=== PATIENT | female | born 1960 | race Caucasian/White ===

== ENCOUNTER 2017-01-01 16:33 | Inpatient (IN) | payer OTHER ==
[~2017-01-01] VITALS: Ht 152.4 cm; Wt 68.8 kg
[2017-01-01] MEDS ORDERED: ONDANSETRON 4 MG INJ IV STA ×2 (17:17→19:26)
[2017-01-01] MEDS ORDERED: SOD CHLORIDE 0.9% 1,000 ML IV STA ×3 (17:17→19:26)
[2017-01-01] MEDS ORDERED: FAMOTIDINE 20 MG INJ IV STA (17:17)
--- NOTE | 2017-01-01 17:24 | ERD ---
ER Documentation Chief Complaint Date/Time DATE: 01/01/17 TIME: 17:19 Chief Complaint NAUSEA VOMTING AND ABD PAIN FOR 1 DAY. BS [employer] WAS 366. NO HEMATEMES HPI This is a 56-year-old female with known history of diabetes mellitus type 2, hypertension that presents to the emergency department complaining of multiple episodes of nonbloody nonbilious emesis for the past 12 hours that occurred after the patient developed a sudden onset of severe dizziness. The patient indicates that at roughly 7 AM this morning after awakening she felt as though the room was spinning around her with no tinnitus. She immediately had a feeling of nausea followed by nonbloody nonbilious emesis. The patient indicates that when she attempts to ambulate she feels unsteady in her gait due to the dizziness. She denies any chest pain or pressure that radiates to the neck arm back or jaw. She states that she is experiencing a mild headache that feels like a bandlike headache. She indicates that 6 months ago she had similar episodes and was diagnosed with peripheral vertigo. She denies any recent travel or prolonged immobilization has no shortness of breath at rest or exertion. She denies any weakness or numbness of her upper or lower extremities. She states that the dizziness is exacerbated when she opens her eyes and stands and is improved when she lies supine with her eyes closed. She went to the clinic just prior to arrival and immediately was sent to the emergency department to be further evaluated. Her blood glucose at that time was 326. She states she is compliant with her medications and denies any polyuria or polydipsia. Contrary to the triage note the patient denies any abdominal pain or diarrhea. ROS All systems reviewed and are negative except as per history of present illness. Medications Home Meds Reported Medications Metformin Hcl* (Metformin Hcl*) 850 Mg Tablet, 850 MG PO WITH BREAKFAST, #30 TAB 01/01/17 Atenolol* (Atenolol*) 50 Mg Tablet, 50 MG PO DAILY, #30 TAB 01/01/17 Allergies Allergies: Coded Allergies: No Known Allergy (Unverified , 01/01/17) Physical Exam Vitals Vital Signs Date Time Temp Pulse Resp B/P Pulse Ox O2 Delivery O2 Flow Rate FiO2 01/01/17 18:35 71 17 148/74 100 Room Air 01/01/17 16:38 98.0 76 20 201/100 96 Physical Exam Constitutional:Well-developed. Well-nourished. Sitting in a chair with her eyes closed. HEENT:Normocephalic. Atraumatic.Pupils were equal round reactive to light. Dry mucous membranes.No tonsillar exudates. Fundoscopy exam shows sharp optic disc bilaterally and venous pulsations are Neck: No nuchal rigidity. No lymphadenopathy. No posterior cervical spine tenderness or step-offs. Respiratory: Not using accessory muscles of respiration.Lungs were clear to auscultation bilaterally. No rhonchi. No rales. No wheezing. Cardiovascular: Regular rate regular rhythm.No murmurs. No rubs were appreciated.S1, S2 normal. Distal pulses are palpable 2+ bilaterally. GI: Abdomen was soft. Nontender. Non Distended. No pulsatile abdominal masses or bruits. No rebound. No guarding. Bowel sounds were present and normal. Muscle skeletal: Full range of motion of both the upper and lower extremities bilaterally.Normal muscle tone.No assymetrical calf tenderness or swelling. Skin: No petechia, no purpura. No lesions on the palms or the soles of the feet. No maculopapular rash. NEURO: Patient was alert, awake, orientated x3.No facial droop. Gait not observed as patient was experiencing severe dizziness. Fatigable nystagmus most prominent on right-sided gaze. Speech had regular rate and rhythm. No focal neurological deficits. Result Diagram: 01/01/17 1735 01/01/17 1735 Results 24 hrs Laboratory Tests Test 01/01/17 17:35 White Blood Count 11.810^3/ul Red Blood Count 5.5110^6/ul Hemoglobin 15.1g/dl Hematocrit 42.6% Mean Corpuscular Volume 77.3fl Mean Corpuscular Hemoglobin 27.4pg Mean Corpuscular Hemoglobin Concent 35.4g/dl Red Cell Distribution Width 12.7% Platelet Count 19059^3/UL Mean Platelet Volume 10.5fl Neutrophils % 77.8% Lymphocytes % 18.4% Monocytes % 2.2% Eosinophils % 0.1% Basophils % 0.4% Nucleated Red Blood Cells % 0.2/100WBC Neutrophils # 9.210^3/ul Lymphocytes # 2.210^3/ul Monocytes # 0.310^3/ul Eosinophils # 0.010^3/ul Basophils # 0.110^3/ul Nucleated Red Blood Cells # 0.010^3/ul Prothrombin Time 11.8Sec Prothrombin Time Ratio 0.9 INR International Normalized Ratio 0.87 Activated Partial Thromboplast Time 24.6Sec Sodium Level 139mmol/L Potassium Level 3.9mmol/L Chloride Level 97mmol/L Carbon Dioxide Level 27mmol/L Anion Gap 19 Blood Urea Nitrogen 14mg/dl Creatinine 0.40mg/dl Glucose Level 384mg/dl Calcium Level 9.8mg/dl Total Bilirubin 0.4mg/dl Direct Bilirubin 0.00mg/dl Indirect Bilirubin 0.4mg/dl Aspartate Amino Transf (AST/SGOT) 25IU/L Alanine Aminotransferase (ALT/SGPT) 39IU/L Alkaline Phosphatase 99IU/L Troponin I < 0.012ng/ml Total Protein 8.5g/dl Albumin 4.7g/dl Globulin 3.80g/dl Albumin/Globulin Ratio 1.23 Amylase Level 76U/L Lipase 114U/L Current Medications Medications (Trade) Dose Ordered Sig/Madhav Route PRN Reason Start Time Stop Time Status Last Admin Dose Admin Sodium Chloride (NS) 1,000 ml @ 1,000 mls/hr Q1H STAT IV 01/01/17 17:17 01/01/17 18:16 DC 01/01/17 17:30 Ondansetron HCl (Zofran Inj) 4 mg ONCE STAT IV 01/01/17 17:17 01/01/17 17:19 DC 01/01/17 17:31 Famotidine (Pepcid Iv) 20 mg ONCE STAT IV 01/01/17 17:17 01/01/17 17:19 DC 01/01/17 17:31 Meclizine HCl (Antivert) 25 mg ONCE ONCE PO 01/01/17 17:30 01/01/17 17:31 DC 01/01/17 17:31 Metoclopramide HCl 10 mg 10 mg ONCE ONCE IV 01/01/17 18:00 01/01/17 18:01 DC 01/01/17 18:32 Sodium Chloride (NS) 1,000 ml @ 1,000 mls/hr Q1H STAT IV 01/01/17 19:06 01/01/17 20:05 DC 01/01/17 19:21 Diazepam (Valium) 2.5 mg ONCE ONCE IV 01/01/17 19:30 01/01/17 19:31 DC 01/01/17 19:40 Ondansetron HCl 4 mg 4 mg ONCE STAT IV 01/01/17 19:26 01/01/17 19:27 DC 01/01/17 19:39 Sodium Chloride (NS) 1,000 ml @ 1,000 mls/hr Q1H STAT IV 01/01/17 19:26 01/01/17 20:25 DC 01/01/17 19:40 Procedures/MDM This patient was seen and evaluated by myself. The patient presented to the emergency department complaining of dizziness. My differential diagnosis included but was not limited to hypovolemia, myocardial infarction, pulmonary embolism, hypoglycemia, hypoxia, anemia, vasovagal episode, hypothyroidism, anxiety, peripheral or central vertigo. The patient was placed on a erisa attorney, continuous pulse oximetry and IV access established by nursing staff. The patient was given a liter bolus of normal saline, IV Zofran and Antivert for suspected vertigo. I did feel is necessary to obtain a CT scan of the patient's head which was reviewed by myself and the radiologist indicated no acute intracerebral hemorrhage mass-effect or midline shift. The patient's symptoms occurred 10 hours prior to arrival and did not have any strokelike symptoms to suggest an ischemic cerebrovascular accident. The patient had hyperglycemia without ketosis. This was treated with IV fluids. The patient was hypertensive upon arrival into the emergency department however the patient was actively vomiting. Once the patient's vomiting have subsided her blood pressure had improved with no signs of endorgan damage to suggest hypertensive emergency or urgency. 12 Lead EKG tracing ordered and reviewed by myself showed: Normal sinus rhythm of 62 bpm and no arrhythmia. MO interval normal. QRS duration normal. No ST segment elevation No ST segment depression. No changes consistent with acute ischemia. Observation Note: Time: 4 hours Family Hx: No Hypertension Evaluation: Multiple exams showed no improvement of the patient's symptoms. She continued to have the sensation of severe vertigo. At this time she had further episodes of nonbloody nonbilious emesis and continued to receive IV Reglan followed by IV Zofran and was also given intravenous Valium. Given the severity of the patient's symptoms I did feel she required admission for further diagnostic imaging as the patient will undergo a CTA of her head and neck. She will be admitted to the [facility] physician , in serious condition to the telemetry service Departure Diagnosis: Primary Impression: Nausea and vomiting Vomiting type: unspecified Vomiting Intractability: intractable Qualified Code: R11.2 - Intractable vomiting with nausea, unspecified vomiting type Additional Impression: Peripheral vertigo Laterality: unspecified laterality Qualified Code: H81.399 - Peripheral vertigo, unspecified laterality Condition: Serious BETINA STANLEY January 01, 2017 17:23
[2017-01-01] MEDS ORDERED: MECLIZINE 12.5 MG TAB PO ONE (17:30)
[2017-01-01 17:44] LABS: ADD SCAN DIFF NO
[2017-01-01 17:46] LABS: BASOPHIL # 0.1 10^3/ul (0.0-0.1); BASOPHILS % 0.4 % (0.0-2.0); EOSINOPHILS % 0.1 % (0.0-7.0); HEMATOCRIT 42.6 % (37.0-47.0); HEMOGLOBIN 15.1 g/dl (12.0-16.0); LYMPHOCYTES # 2.2 10^3/ul (0.8-2.9); LYMPHOCYTES % 18.4 % (15.0-51.0); MEAN CORPUSCULAR HEMOGLOBIN 27.4 pg (29.0-33.0); MEAN CORPUSCULAR HGB CONC 35.4 g/dl (32.0-37.0); MEAN CORPUSCULAR VOLUME 77.3 fl (82.0-101.0); MEAN PLATELET VOLUME 10.5 fl (7.4-10.4); MONOCYTE # 0.3 10^3/ul (0.3-0.9); MONOCYTES % 2.2 % (0.0-11.0); NEUTROPHIL # 9.2 10^3/ul (1.6-7.5); NEUTROPHILS % 77.8 % (39.0-77.0); NUCLEATED RED BLOOD CELLS% 0.2 /100WBC (0.0-0.0); PLATELET COUNT 281 10^3/UL (140-415); RED BLOOD COUNT 5.51 10^6/ul (4.20-5.40); RED CELL DISTRIBUTION WIDTH 12.7 % (11.5-14.5); WHITE BLOOD COUNT 11.8 10^3/ul (4.8-10.8)
[2017-01-01] MEDS ORDERED: METOCLOPRAMIDE 10 MG INJ IV ONE (18:00)
[2017-01-01] MEDS ORDERED: ATEN50TA PO (18:11)
[2017-01-01] MEDS ORDERED: METF850T PO (18:12)
[2017-01-01 18:22] LABS: INR 0.87; PROTIME 11.8 Sec (12.2-14.2); PT RATIO 0.9
[2017-01-01 18:23] LABS: PARTIAL THROMBOPLASTIN TIME 24.6 Sec (25.0-35.0)
[2017-01-01 18:24] LABS: ALBUMIN 4.7 g/dl (3.3-4.9); CHLORIDE 97 mmol/L (97-110)
[2017-01-01 18:25] LABS: POTASSIUM 3.9 mmol/L (3.5-5.1); SODIUM 139 mmol/L (135-144)
[2017-01-01 18:27] LABS: ALBUMIN/GLOBULIN RATIO 1.23; AMYLASE 76 U/L (11-123); ANION GAP 19 (8-16); BILIRUBIN,INDIRECT 0.4 mg/dl (0-1.1); BILIRUBIN,TOTAL 0.4 mg/dl (0.2-1.3); CARBON DIOXIDE 27 mmol/L (21-31); TOTAL PROTEIN 8.5 g/dl (6.1-8.1)
[2017-01-01 18:28] LABS: ALANINE AMINOTRANSFERASE 39 IU/L (13-69); ALKALINE PHOSPHATASE 99 IU/L (42-121); ASPARTATE AMINO TRANSFERASE 25 IU/L (15-46); BLOOD UREA NITROGEN 14 mg/dl (7-20); CALCIUM 9.8 mg/dl (8.4-10.2); GLUCOSE 384 mg/dl (70-220)
[2017-01-01 18:37] LABS: TROPONIN-I < 0.012 ng/ml (0.00-0.12)
--- NOTE | 2017-01-01 18:53 | RADRPT ---
PROCEDURE: CT Brain without. CLINICAL INDICATION: Severe headache and dizziness. TECHNIQUE: A CT of the brain was performed on multidetector high-resolution CT scanner utilizing a xial sections from the skull base through the vertex without contrast. The scan was reviewed in sof t tissue brain and high frequency resolution bone algorithm windows. Images were reviewed on a high -resolution PACS workstation. One or more the following does reduction techniques were utilized: Aut omated exposure control, adjustment of the mA/ or kV according to patient's size, or use of iterativ e reconstruction technique. The exam CTDI = 43.1 mGy and the DLP = 823.56 mGy-cm. COMPARISON: None available per FINDINGS: The ventricles and sulci are minimal prominent indicative of volume loss. There is no intracranial h emorrhage, mass effect or midline shift. No abnormal intra-axial or extra-axial fluid collections a re seen. The robles/white matter differentiation is preserved. There are mild scattered foci of hypoattenuation in the white matter, which are nonspecific in etiol ogy but likely reflect chronic small vessel ischemic changes. There are mild intracranial vascular calcifications consistent with atherosclerosis. The visualized paranasal sinuses are essentially amy ar. IMPRESSION: 1. No acute intracranial hemorrhage, transcortical infarction or mass effect. 2. Mild intracranial atherosclerosis and chronic small vessel ischemic changes. 3. Minimal generalized cerebral volume loss. RPTAT: EE .Yadira Whitehead MD, MD Date Time Electronically viewed and signed by .Yadira Whitehead MD, MD on 01/01/2017 18:52 .N/
[2017-01-01] MEDS ORDERED: DIAZEPAM 5 MG/ML SYG IV ONE (19:30)
[2017-01-01] MEDS ORDERED: NACL 0.9% 3 ML SYG IV SCH (21:30)
[2017-01-01] MEDS ORDERED: ONDANSETRON 4 MG INJ IV PRN ×2 (21:30)
[2017-01-01] MEDS ORDERED: METOCLOPRAMIDE 10 MG INJ IV PRN (21:30)
[2017-01-01] MEDS ORDERED: SOD CHLORIDE 0.9% 500 ML IV ONE (21:30)
[2017-01-01] MEDS ORDERED: IOHEXOL 100 ML ONE (21:37)
[2017-01-01] MEDS ORDERED: SOD CHLORIDE 0.9% 100 ML ONE (21:37)
[2017-01-01] MEDS ORDERED: GLUCOSE GEL 15 GRAM TUBE PO PRN ×2 (22:00)
[2017-01-01] MEDS ORDERED: GLUCAGON 1 MG INJ IM PRN (22:00)
[2017-01-01] MEDS ORDERED: DEXTROSE 50% 50 ML SYRINGE IV PRN ×2 (22:00)
[2017-01-01] MEDS ORDERED: GLUCOSE GEL 15 GRAM TUBE BUCCAL PRN (22:00)
--- NOTE | 2017-01-01 22:51 | RADRPT ---
PROCEDURE: CTA Head and neck. CLINICAL INDICATION: Headache. Dizziness. TECHNIQUE: CTA of the head and neck was obtained . Sagittal and coronal reformations and MIPs were provided. Images were obtained prior following the intravenous contrast administration of 95 cc of O mnipaque 350 contrast. The administered radiation dose was CTDI vol = 16.5, 17.92 mGy, DLP = 8.25, 626.33 mGy-cm. Coronal and sagittal as well as maximal intensity projection reformations were obtai meme. One or more of the following dose reduction techniques were used: Automated exposure control, A djustment of the mA and/or kV according to patient size, or Use of iterative reconstruction techniqu e. COMPARISON: There are no similar studies submitted for comparison.Noncontrast CT of the head from e same day. FINDINGS: CTA neck: Aorta: Normal in caliber. There is a bovine aortic arch which is a normal variant. Right common carotid artery: Patent without evidence of stenosis. Right internal carotid artery: There is a cleft within the proximal right internal carotid artery. Patent without evidence of stenosis. Right external carotid artery: Patent without evidence of stenosis. Left common carotid artery: Patent without evidence of stenosis. Left internal carotid artery: There is an apparent cleft within the left internal carotid artery. P atent without evidence of stenosis. Left external carotid artery: Patent without evidence of stenosis. V1/V2 vertebral arteries: The left vertebral artery originates off of the aorta which is a normal va riant. Patent bilaterally without evidence of stenosis. Vertebral artery dominance: Right. CTA head: Carotid arteries: There are mild vascular calcifications within the bilateral cavernous carotid julien merlyn as well as mild vascular calcifications within the left supraclinoid carotid artery. There is mild right supraclinoid carotid artery stenosis. There is mild right carotid artery stenosis. Anterior cerebral arteries: Patent bilaterally without evidence of stenosis. Middle cerebral arteries: Patent bilaterally without evidence of stenosis. Posterior cerebral arteries: Patent bilaterally without evidence of stenosis. Anterior communicating artery: Present. Posterior communicating arteries: Present on the right. The right P1 segment is hypoplastic. Basilar artery: Patent without evidence of stenosis. V3/V4 Vertebral arteries: Patent bilaterally without evidence of stenosis. Aneurysm: No aneurysm is identified. Venous sinuses: Patent. CT head with contrast: No significant change from recent noncontrast CT of the head. CT neck: There is no cervical adenopathy.There is straightening of the normal cervical lordosis. IMPRESSION: CTA Head 1. No arterial thrombus or vessel occlusion. 2. Mild right supraclinoid and mild right carotid artery stenosis. 3. No intracranial aneurysm. CTA Neck 1. Clefts within the bilateral internal carotid arteries which is likely a normal variant without bi lateral cervical internal carotid artery stenosis by NASCET criteria. 2. The left vertebral artery originates off of the aorta which is a normal variant. 3. Bovine aortic arch which is a normal variant. 4. No carotid or vertebral artery dissection Further findings as detailed above. RPTAT: HVF .Oumar Wright MD, Date Time Electronically viewed and signed by .Oumar Wright MD, on 01/01/2017 22:51 .F/
[2017-01-01 23:14] VITALS: PULSE 74
[2017-01-01 23:34] VITALS: Ht 152.4 cm; Wt 68.8 kg
[2017-01-01 23:52] VITALS: BP 143/65; RESP 20
[2017-01-01] MEDS: SOD CHLORIDE 0.9% 1,000 ML IV SCH (23:59)
[2017-01-02] VITALS (12 sets, daily range): BP systolic 116–144; BP diastolic 54–68; PULSE 60–84; RESP 18–20
[2017-01-02] MEDS: MECLIZINE 25 MG TAB PO SCH ×4 (01:06→20:26)
[2017-01-02] MEDS ORDERED: ACCUCHECK AT 2AM (Patients on SS coverage) XX SCH (02:00)
[2017-01-02 06:50] LABS: ADD SCAN DIFF NO
[2017-01-02 06:54] LABS: BASOPHILS % 0.3 % (0.0-2.0); EOSINOPHILS % 0.4 % (0.0-7.0); HEMATOCRIT 37.1 % (37.0-47.0); HEMOGLOBIN 13.4 g/dl (12.0-16.0); LYMPHOCYTES # 2.7 10^3/ul (0.8-2.9); LYMPHOCYTES % 26.7 % (15.0-51.0); MEAN CORPUSCULAR HEMOGLOBIN 27.7 pg (29.0-33.0); MEAN CORPUSCULAR HGB CONC 36.1 g/dl (32.0-37.0); MEAN CORPUSCULAR VOLUME 76.8 fl (82.0-101.0); MEAN PLATELET VOLUME 10.4 fl (7.4-10.4); MONOCYTE # 0.6 10^3/ul (0.3-0.9); MONOCYTES % 5.9 % (0.0-11.0); NEUTROPHIL # 6.8 10^3/ul (1.6-7.5); NUCLEATED RED BLOOD CELLS% 0.3 /100WBC (0.0-0.0); PLATELET COUNT 286 10^3/UL (140-415); RED BLOOD COUNT 4.83 10^6/ul (4.20-5.40); RED CELL DISTRIBUTION WIDTH 12.5 % (11.5-14.5); WHITE BLOOD COUNT 10.2 10^3/ul (4.8-10.8)
[2017-01-02 07:17] LABS: ALBUMIN 3.8 g/dl (3.3-4.9); ALBUMIN/GLOBULIN RATIO 1.18; BILIRUBIN,INDIRECT 0.6 mg/dl (0-1.1); BILIRUBIN,TOTAL 0.6 mg/dl (0.2-1.3); CALCIUM 8.5 mg/dl (8.4-10.2); CREATININE 0.38 mg/dl (0.44-1.00); MAGNESIUM 1.4 mg/dl (1.7-2.5); PHOSPHORUS 3.5 mg/dl (2.5-4.9); POTASSIUM 3.8 mmol/L (3.5-5.1)
[2017-01-02 07:48] LABS: THYROID STIMULATING HORMONE 0.883 MIU/L (0.465-4.680)
[2017-01-02] MEDS ORDERED: INSULIN ASPART [NOVOLOG] 3 ML PEN SC SCH ×2 (07:55→11:50)
[2017-01-02] MEDS: ATENOLOL 50 MG TAB PO SCH (08:35)
[2017-01-02] MEDS: SOD CHLORIDE 0.9% 1,000 ML IV SCH (08:35)
[2017-01-02] MEDS: FAMOTIDINE 20 MG INJ IV SCH ×2 (08:39→20:26)
[2017-01-02] MEDS ORDERED: SOD CHLORIDE 0.9% 500 ML IV ONE (10:00)
[2017-01-02] MEDS: LINAGLIPTIN 5 MG TABLET PO SCH (10:47)
--- NOTE | 2017-01-02 10:48 | HP ---
DATE OF ADMISSION: 01/01/2017 PRIMARY CARE PHYSICIAN: Payton Nowak MD CHIEF COMPLAINT ON ADMISSION: Nausea, vomiting, and dizziness. HISTORY OF PRESENT ILLNESS: This is a 56-year-old female with diabetes mellitus type 2, hypertensio n, noncompliant with diet or diabetic medication, who presented at an urgent care with complaints of acute onset yesterday of headache, dizziness, unsteadiness. She was noted to have multiple episode s of nausea and vomiting while awaiting at urgent care and also pale. She was noted to be hypertens josh upon arrival at the urgent care 160/90 and a blood glucose of 326. Given her ongoing symptoms a nd clinical state, she was referred to [facility] ER. In the emergency department upon presentation, the patient was noted to be significantly hypertensive with blood pressure of 20 1/100, this was however during episodes of vomiting. Again, her blood sugars were elevated up to 38 4. The rest of her laboratory data are fairly normal. Despite a dose of meclizine, Reglan, Zofran and finally low-dose Valium, the patient was still having severe symptoms. She is unable to stand, unable to walk, starts throwing up the minute she stands up and having ongoing mild nystagmus. The patient reports that she was worked up as an outpatient 6 months ago for moderate symptoms of benign positional vertigo. She reports that her symptoms resolved over a period of 4 days. She reports b brooklynn diagnosed with diabetes 3 years ago, has been on metformin 850 mg p.o. q.a.m. over the past 3 y ears. She does not check her blood sugars, has not had any reevaluation of her diabetes over the st 3 years, this is according to the patient. This morning, she is still vertiginous, having nausea and vomiting. She is unable to tolerate most of her p.o. intake and she is complaining of headache after multiple episodes of nausea and vomiting . She is on IV fluids, will be increased to 125 mL/hour after a bolus of 500 mL. I have started he r on Reglan with the meals. Her A1c came back at 11.5, consistent with diabetes mellitus, uncontrol led, likely secondary to noncompliance in this case. The patient seems to be unaware of the need fo r blood sugar checks. She does not have a machine. Diabetes education will be ordered. She starte d on Tradjenta this morning along with a sliding scale insulin and further insulin therapy added as needed and as she tolerates p.o. She had a CT angiogram of her head and neck overnight, which are n egative at this point. We will check a 2-D echocardiogram to complete her workup. Her thyroid func tion testing are negative. For now, she is on telemetry on monitoring, possibly to be downgraded in the next 24 hours if there are no signs of cardiac issues. [facility] ALLERGIES: NO KNOWN ALLERGIES. PAST MEDICAL HISTORY: 1. Benign positional vertigo. 2. Diabetes mellitus, uncontrolled due to noncompliance with diet and medication. 3. Hypertension. PAST SURGICAL HISTORY: 1. Status post x3, remotely. 2. Status post right breast biopsy 3 years ago, which was negative according to patient. SOCIAL HISTORY: She lives with her . She does not drink or smoke tobacco. No history of dr jensen use. REVIEW OF SYSTEMS: As per HPI. The patient denies any chest pain. She denies any abdominal pain p er se, just the nausea and vomiting. She denies any neurological deficits, but is having ongoing ve rtigo and headaches currently. She denies any lower extremity edema. No recent infection. No feve rs, no chills, no cough. OUTPATIENT MEDICATIONS: 1. Atenolol 50 mg p.o. daily. 2. Metformin 850 mg p.o. q .breakfast. PHYSICAL EXAMINATION: VITAL SIGNS: Temperature is 98.0, heart rate of 75, respiratory rate of 18, blood pressure 125/63. The patient is satting 96% on room air. GENERAL: She is alert and oriented x4. She has good Turkish actually, but primarily [place] speaki ng. She is not in acute distress currently, except she is uncomfortable due to the ongoing vertigo and mild headache. HEENT: Pupils are equally round and reactive to light. Extraocular muscles are intact. No nystagm us is detected. NECK: No JVD, no thyromegaly noted. HEART: Regular rate and rhythm. No murmur, rubs, or gallops. LUNGS: Clear to auscultation bilaterally. ABDOMEN: Soft, nontender, nondistended. Bowel sounds are present. EXTREMITIES: No edema, clubbing or cyanosis. NEUROLOGIC: She is grossly intact with strength 5/5. Sensation intact. However, she has abnormal gait currently as she is unable to stand and balance herself due to the ongoing vertigo. LABORATORY DATA: White blood cell count is 12.2, hemoglobin 13.4, hematocrit 37.1, platelet count o f 286. Chemistry with a sodium of 137, corrected is closer to 139, potassium 3.8, chloride 106, bic arbonate 23, BUN 8, creatinine 0.38 and glucose of 263. Hemoglobin A1c came back 11.2. Calcium 8.5 , phosphorus 3.5, magnesium of 1.4. LFTs within normal. Fasting lipid panel is pending. TSH and f ree T4 within normal. INR 0.87, PT 11.8, PTT 24.6. RADIOLOGICAL DATA: CAT scan of the brain noncontrast showed no acute intracranial hemorrhage, minim al generalized cerebral volume loss, mild intracranial atherosclerosis, chronic small vessel ischemi c changes. CTA of the head and neck is grossly negative, no acute findings. EKG: Normal sinus rhythm, heart rate in the 60s, no acute ST or T-wave abnormalities. A 2-D echocardiogram will be ordered. ASSESSMENT AND PLAN: This is a 56-year-old female with: 1. Acute on chronic benign positional vertigo. She has an acute episode severely symptomatic, curr ently still not tolerating p.o. well with ongoing nausea, vomiting, vertigo and a mild headache. We will increase her IV fluids to 125 mL/hour with additional potassium in it. Replete her magnesium level. Continue to treat her symptomatically. Reglan has been added/scheduled to her regimen on to p of Zofran p.r.n. At this point, I am wondering if the patient even has some gastroparesis, this i s in addition of the vertigo, although neurological studies are negative so far. 2. Intractable nausea and vomiting related to vertigo versus diabetic gastroparesis, which is possi ble given her uncontrolled diabetes mellitus. Therefore, Reglan has been added for symptomatic edison tment and blood sugar control will be aimed. 3. Diabetes mellitus, uncontrolled with hemoglobin A1c of 11.5. I have started her on Tradjenta. Her metformin is discontinued due to the fact that she had a contrast study last night. Moderate sl iding scale insulin and diabetic education pending and further changes in her medication will be mad e based on recommendations. 4. Hypokalemia and hypomagnesemia, likely related to intractable nausea and vomiting. We will adju st her IV fluids and replace her electrolytes. 5. Prophylaxis. Pepcid for gastrointestinal prophylaxis. Sequential compression devices to lower extremities for deep venous thrombosis prophylaxis. DISPOSITION: The patient is admitted on telemetry currently. Her blood sugars need to be controlle d along with her vertiginous symptoms. Dictated By: SUNDEEP AGUILAR/IRAJ Conf#: [id number] DID#: [id number]
[2017-01-02] MEDS ORDERED: MAGNESIUM SULFATE 4 GM/100 ML 100 ML IVPB ONE (11:00)
[2017-01-02] MEDS: METOCLOPRAMIDE 10 MG INJ IV SCH ×3 (11:20→20:26)
[2017-01-02] MEDS: INSULIN ASPART [NOVOLOG] 3 ML PEN SC SCH ×3 (12:01→20:33)
[2017-01-02] MEDS: NS + KCL 20 MEQ 1,000 ML IV SCH ×2 (12:02→17:46)
[2017-01-03] VITALS (11 sets, daily range): BP systolic 120–148; BP diastolic 63–73; PULSE 50–71; RESP 17–20
[2017-01-03] MEDS: NS + KCL 20 MEQ 1,000 ML IV SCH ×3 (01:52→18:06)
[2017-01-03] MEDS ORDERED: ACCU-CHEK XX SCH (02:00)
[2017-01-03] MEDS: ACCU-CHEK XX SCH (02:00)
[2017-01-03] MEDS: ACETAMINOPHEN 325 MG TAB PO PRN ×2 (07:49→21:03)
[2017-01-03] MEDS: METOCLOPRAMIDE 10 MG INJ IV SCH ×4 (07:50→21:03)
[2017-01-03] MEDS: INSULIN ASPART [NOVOLOG] 3 ML PEN SC SCH ×6 (07:56→21:14)
[2017-01-03 08:14] LABS: ADD SCAN DIFF NO
[2017-01-03] MEDS: ATENOLOL 50 MG TAB PO SCH (08:25)
[2017-01-03] MEDS: MECLIZINE 25 MG TAB PO SCH ×3 (08:25→21:04)
[2017-01-03] MEDS: LINAGLIPTIN 5 MG TABLET PO SCH (08:25)
[2017-01-03] MEDS: FAMOTIDINE 20 MG INJ IV SCH ×2 (08:25→21:04)
[2017-01-03 08:33] LABS: BASOPHIL # 0.1 10^3/ul (0.0-0.1); BASOPHILS % 0.5 % (0.0-2.0); EOSINOPHILS # 0.1 10^3/ul (0.0-0.5); EOSINOPHILS % 1.2 % (0.0-7.0); HEMATOCRIT 37.9 % (37.0-47.0); HEMOGLOBIN 13.1 g/dl (12.0-16.0); LYMPHOCYTES # 3.9 10^3/ul (0.8-2.9); LYMPHOCYTES % 35.4 % (15.0-51.0); MEAN CORPUSCULAR HEMOGLOBIN 27.2 pg (29.0-33.0); MEAN CORPUSCULAR HGB CONC 34.6 g/dl (32.0-37.0); MEAN CORPUSCULAR VOLUME 78.6 fl (82.0-101.0); MEAN PLATELET VOLUME 10.6 fl (7.4-10.4); MONOCYTE # 0.6 10^3/ul (0.3-0.9); MONOCYTES % 5.8 % (0.0-11.0); NEUTROPHIL # 6.2 10^3/ul (1.6-7.5); NEUTROPHILS % 56.3 % (39.0-77.0); NUCLEATED RED BLOOD CELLS% 0.3 /100WBC (0.0-0.0); PLATELET COUNT 252 10^3/UL (140-415); RED BLOOD COUNT 4.82 10^6/ul (4.20-5.40); RED CELL DISTRIBUTION WIDTH 12.9 % (11.5-14.5)
[2017-01-03 08:51] LABS: MAGNESIUM 1.7 mg/dl (1.7-2.5); PHOSPHORUS 2.8 mg/dl (2.5-4.9)
[2017-01-03 08:53] LABS: CALCIUM 8.6 mg/dl (8.4-10.2); CREATININE 0.41 mg/dl (0.44-1.00); POTASSIUM 4.1 mmol/L (3.5-5.1)
--- NOTE | 2017-01-03 10:54 | PN ---
Date/Time of Note Date/Time of Note DATE: 01/03/17 TIME: 10:45 Assessment/Plan VTE Prophylaxis VTE Prophylaxis Intervention: ambulation, SCD's Lines/Catheters IV Catheter Type (from Nrsg): Peripheral IV Urinary Cath still in place: No Assessment/Plan Assessment/Plan 56-year-old female with: 1. Acute on chronic severe benign positional vertigo. Still symptomatic but tolerating po better while on Reglan Also on Meclizine Continue IV fluids 2. Intractable nausea and vomiting related to vertigo versus diabetic gastroparesis, seems to be resolving Seems to be tolerating po better with Reglan Monitor 3. Diabetes mellitus, uncontrolled with hemoglobin A1c of 11.5. Still uncontrolled BG while on Tradjenta. Appreciate recs from DM educator, tolerating po so far this AM so will start Lantus and pre meal insulin Mild sliding scale insulin and ongoing diabetic education 4. Hypokalemia and hypomagnesemia, likely related to intractable nausea and vomiting. Replete Mag further today. 5. Hyperlipidemia: starting Lipitor Prophylaxis. Pepcid for gastrointestinal prophylaxis. Sequential compression devices to lower extremities for deep venous thrombosis prophylaxis. DISPOSITION: May downgrade to meds surg today. Subjective 24 Hr Interval Summary Free Text/Dictation Patient feeling a little better Able to tolerate some po but still with ongoing Vertigo and mild FLANAGAN BG still up, starting Lantus + QAC Novolog Exam/Review of Systems Vital Signs Vitals Vital Signs Date Time Temp Pulse Resp B/P Pulse Ox O2 Delivery O2 Flow Rate FiO2 01/03/17 08:16 69 01/03/17 07:34 98.1 18 146/67 98 01/01/17 22:13 Room Air Intake and Output 01/02/17 01/02/17 01/03/17 15:00 23:00 07:00 Intake Total 650 ml 400 ml Balance 650 ml 400 ml Exam Constitutional: alert, oriented, well developed Respiratory: clear to auscultation, normal air movement Cardiovascular: nl pulses, regular rate and rhythm Gastrointestinal: non-tender, soft Musculoskeletal: nl extremities to inspection Extremities: normal pulses, other (no edema, clubbing or cyanosis ) Neurological: 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 intact, nl mental status, nl speech, other (ongoing vertigo ) Results Result Diagram: 01/03/1712 01/03/1712 Results 24 hrs Laboratory Tests Test 01/02/17 11:34 01/02/17 17:35 01/02/17 20:28 01/03/17 01:55 Bedside Glucose 249 H 268 H 197 224 H Test 01/03/17 07:12 01/03/17 07:51 White Blood Count 11.0 H Red Blood Count 4.82 Hemoglobin 13.1 Hematocrit 37.9 Mean Corpuscular Volume 78.6 L Mean Corpuscular Hemoglobin 27.2 L Mean Corpuscular Hemoglobin Concent 34.6 Red Cell Distribution Width 12.9 Platelet Count 252 Mean Platelet Volume 10.6 H Neutrophils % 56.3 Lymphocytes % 35.4 Monocytes % 5.8 Eosinophils % 1.2 Basophils % 0.5 Nucleated Red Blood Cells % 0.3 H Neutrophils # 6.2 Lymphocytes # 3.9 H Monocytes # 0.6 Eosinophils # 0.1 Basophils # 0.1 Nucleated Red Blood Cells # 0.0 Sodium Level 137 Potassium Level 4.1 Chloride Level 106 Carbon Dioxide Level 26 Anion Gap 9 Blood Urea Nitrogen 8 Creatinine 0.41 L Glucose Level 225 H Calcium Level 8.6 Phosphorus Level 2.8 Magnesium Level 1.7 Triglycerides Level 168 H Cholesterol Level 242 H LDL Cholesterol, Calculated 168 HDL Cholesterol 40 Cholesterol/HDL Ratio 6.0 Bedside Glucose 228 H Medications Medications Current Medications Ondansetron HCl (Zofran Inj) 4 mg Q6H PRN IV NAUSEA AND/OR VOMITING; Start 01/01 at 21:30 Acetaminophen (Tylenol Tab) 650 mg Q6H PRN PO PAIN LEVEL 1-3 OR FEVER Last administered on 01/03/17 07:49; Admin Dose 650 MG; Start 01/01/17 at 21:30 Famotidine (Pepcid Iv) 20 mg Q12 IV Last administered on 01/03/17 08:25; Admin Dose 20 MG; Start 01/02/17 at 09:00 Meclizine HCl (Antivert) 25 mg TID PO Last administered on 01/03/17 08:25; Admin Dose 25 MG; Start 01/01/17 at 22:00 Atenolol (Tenormin) 50 mg DAILY PO Last administered on 01/03/17 08:25; Admin Dose 50 MG; Start 01/02/17 at 09:00 Miscellaneous Information 1 ea NOTE XX ; Start 01/01/17 at 22:00 Glucose (Glutose) 15 gm Q15M PRN PO DECREASED GLUCOSE; Start 01/01/17 at 22:00 Glucose (Glutose) 22.5 gm Q15M PRN PO DECREASED GLUCOSE; Start 01/01/17 at 22:00 Dextrose (D50w Syringe) 25 ml Q15M PRN IV DECREASED GLUCOSE; Start 01/01/17 at 22:00 Dextrose (D50w Syringe) 50 ml Q15M PRN IV DECREASED GLUCOSE; Start 01/01/17 at 22:00 Glucagon (Glucagen) 1 mg Q15M PRN IM DECREASED GLUCOSE; Start 01/01/17 at 22:00 Glucose (Glutose) 15 gm Q15M PRN BUCCAL DECREASED GLUCOSE; Start 01/01/17 at 22: 00 Linagliptin (Tradjenta) 5 mg DAILY PO Last administered on 01/03/17 08:25; Admin Dose 5 MG; Start 01/02/17 at 09:30 Diagnostic Test (Pha) 1 ea 1 ea 02 XX ; Start 01/03/17 at 02:00 Potassium Chloride/Sodium Chloride 1,000 ml @ 125 mls/hr Q8H IV Last administered on 01/03/17 01:52; Admin Dose 125 MLS/HR; Start 01/02/17 at 10:30 Magnesium Sulfate (Magnesium Sulfate 2 Gm/50 ml) 50 ml @ 25 mls/hr ONCE ONCE IVPB ; Start 01/03/17 at 11:00; Stop 01/03/17 at 12:59; Status UNV Atorvastatin Calcium (Lipitor) 20 mg HS PO ; Start 01/03/17 at 21:00; Status UNV SUNDEEP VINES January 03, 2017 10:54
[2017-01-03] MEDS ORDERED: MAGNESIUM SULFATE 2 GM/50 ML 50 ML IVPB ONE (11:00)
[2017-01-03] MEDS: INSULIN GLARGINE [LANtus] 3 ML PEN SC SCH (12:55)
--- NOTE | 2017-01-03 18:28 | RADRPT ---
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 Physician: HINA VINES Quality: Adequate Procedures: Transthoracic echocardiogram with complete 2D, M-Mode, and doppler examination. Indications: Dizziness. 2D/M Mode Doppler Measurement Value Normal Ranges Measurement Value Normal Ranges LVIDd 2D 4.4 3.5 - 5.6 cm JONE Vmax 2.0 cm2 LVIDs 2D 2.7 2.1 - 4.1 cm AV Peak Manjit 1.3 m/sec FS 2D 38.0 % AV Peak PG 6.0 mmHg LVPWd 2D 0.9 0.6 - 1.1 cm LVOT Peak Manjit 1.1 m/sec IVSd 2D 0.9 0.6 - 1.1 cm LVOT Peak PG 5.0 mmHg IVS/LVPW 2D 1.0 MV E Peak Manjit 0.9 m/sec AoR Diam 2D 2.7 2.0 - 3.7 cm MV A Peak Manjit 0.8 m/sec LA/Ao 2D 1 0 - 1 MV E/A 1.1 EDV 2D 84.6 cm3 MV Decel Time 211 msec ESV 2D 20.1 cm3 MV E/A 1.1 LA Dimen 2D 3.1 2.3 - 4.0 cm TR Peak Manjit 2.6 m/sec LVOT Diam 1.7 cm TR Peak PG 27.0 mmHg LVOT Area 2.3 cm2 RVSP 30.0 mmHg Findings Left Ventricle: Normal left ventricular systolic function. Normal left ventricular cavity size. Normal left ventricular wall thickness. Ejection fraction is visually estimated at 65 %. Right Ventricle: Normal right ventricular size. Normal right ventricular systolic function. Left Atrium: The left atrium is normal in size. Right Atrium: The right atrium is normal in size. Mitral Valve: Normal appearance and function of the mitral valve with trace physiologic regurgitation. Aortic Valve: Normal appearance of the aortic valve. No significant aortic stenosis or insufficiency. Tricuspid Valve: Normal appearance and function of the tricuspid valve with trace physiologic regurgitation. Estimated peak PA systolic pressure 30 mmHg. Pulmonic Valve: Normal pulmonic valve appearance. There is trace pulmonic regurgitation. Pericardium: Normal pericardium with no significant pericardial effusion. Aorta: Normal aortic root. IVC: Normal size and normal respiratory collapse consistent with normal right atrial pressure. Conclusions 1.Normal left ventricular systolic function. Normal left ventricular cavity size. Normal left ventricular wall thickness. Ejection fraction is visually estimated at 65 %. 2.Normal right ventricular size. Normal right ventricular systolic function. 3.The left atrium is normal in size. 4.The right atrium is normal in size. 5.No significant valvular stenosis or regurgitation seen. 6.Normal pericardium with no significant pericardial effusion. Electronically Signed By: Roman Mazariegos 03-Jan-2017 18:26:41 -0700 Patient Name: SUKHWINDER CASTAÑEDA Study Date: 03-Jan-2017 [id number]
[2017-01-03] MEDS ORDERED: INSULIN GLARGINE [LANtus] 3 ML PEN SC SCH (20:00)
[2017-01-03] MEDS ORDERED: ATORVASTATIN 20 MG TAB PO SCH (21:00)
[2017-01-04 01:04] VITALS: BP 147/67; RESP 20
[2017-01-04] MEDS: ACCU-CHEK XX SCH (02:12)
[2017-01-04] MEDS: NS + KCL 20 MEQ 1,000 ML IV SCH ×2 (03:36→12:36)
[2017-01-04 05:02] LABS: ADD SCAN DIFF NO
[2017-01-04 05:06] LABS: BASOPHIL # 0.1 10^3/ul (0.0-0.1); BASOPHILS % 0.7 % (0.0-2.0); EOSINOPHILS # 0.3 10^3/ul (0.0-0.5); EOSINOPHILS % 3.2 % (0.0-7.0); HEMATOCRIT 36.8 % (37.0-47.0); LYMPHOCYTES # 4.7 10^3/ul (0.8-2.9); LYMPHOCYTES % 47.9 % (15.0-51.0); MEAN CORPUSCULAR HEMOGLOBIN 27.7 pg (29.0-33.0); MEAN CORPUSCULAR HGB CONC 35.3 g/dl (32.0-37.0); MEAN CORPUSCULAR VOLUME 78.5 fl (82.0-101.0); MEAN PLATELET VOLUME 10.2 fl (7.4-10.4); MONOCYTE # 0.6 10^3/ul (0.3-0.9); MONOCYTES % 6.3 % (0.0-11.0); NEUTROPHILS % 41.1 % (39.0-77.0); NUCLEATED RED BLOOD CELLS% 0.2 /100WBC (0.0-0.0); PLATELET COUNT 240 10^3/UL (140-415); RED BLOOD COUNT 4.69 10^6/ul (4.20-5.40); RED CELL DISTRIBUTION WIDTH 12.6 % (11.5-14.5); WHITE BLOOD COUNT 9.7 10^3/ul (4.8-10.8)
[2017-01-04 05:33] LABS: MAGNESIUM 1.6 mg/dl (1.7-2.5)
[2017-01-04 05:50] LABS: CALCIUM 8.6 mg/dl (8.4-10.2); CREATININE 0.46 mg/dl (0.44-1.00); POTASSIUM 4.3 mmol/L (3.5-5.1)
[2017-01-04 08:34] VITALS: BP 138/80; RESP 18
[2017-01-04] MEDS: LINAGLIPTIN 5 MG TABLET PO SCH (08:43)
[2017-01-04] MEDS: FAMOTIDINE 20 MG INJ IV SCH (08:43)
[2017-01-04] MEDS: METOCLOPRAMIDE 10 MG INJ IV SCH ×3 (08:43→17:44)
[2017-01-04] MEDS: MECLIZINE 25 MG TAB PO SCH ×2 (08:43→12:37)
[2017-01-04] MEDS: ATENOLOL 50 MG TAB PO SCH (08:44)
[2017-01-04] MEDS: INSULIN ASPART [NOVOLOG] 3 ML PEN SC SCH ×6 (09:19→17:50)
[2017-01-04] MEDS: INSULIN GLARGINE [LANtus] 3 ML PEN SC SCH (09:22)
[2017-01-04] MEDS ORDERED: MAGNESIUM SULFATE 2 GM/50 ML 50 ML IVPB ONE (13:30)
--- NOTE | 2017-01-04 14:47 | PN ---
Date/Time of Note Date/Time of Note DATE: 01/04/17 TIME: 14:38 Assessment/Plan VTE Prophylaxis VTE Prophylaxis Intervention: SCD's Lines/Catheters IV Catheter Type (from Nrsg): Peripheral IV Urinary Cath still in place: No Assessment/Plan Assessment/Plan 56-year-old female with: 1. Acute on chronic severe benign positional vertigo. Much improved this afternoon and patient able to ambulate but needs a FWW for now Continue Meclizine and Reglan prn Tolerating po D/c home and f/u with PCP and HHPT FWW for home 2. Intractable nausea and vomiting related to vertigo versus diabetic gastroparesis, Resolved Seems to be tolerating po better with Reglan, will discharge with prn Reglan. 3. Diabetes mellitus, uncontrolled with hemoglobin A1c of 11.5. Better controlled BG while on Insulin and Tradjenta Tolerating po and did get a Glucometer from DM educator today. 4. Hypokalemia and hypomagnesemia, likely related to intractable nausea and vomiting. Resolved, giving Mag prior to discharge today 5. Hyperlipidemia: Lipitor Prophylaxis. Pepcid for gastrointestinal prophylaxis. Sequential compression devices to lower extremities for deep venous thrombosis prophylaxis. DISPOSITION: D/c Home today with FWW, HHPT and outpatient PCP follow up. Subjective 24 Hr Interval Summary Free Text/Dictation Patient doing well and no dizziness this AM Feels weak and using FWW for now bu tolerating po and BG well controlled Glucometer was given to patient She has had DM teaching and able to inject insulin Exam/Review of Systems Vital Signs Vitals Vital Signs Date Time Temp Pulse Resp B/P Pulse Ox O2 Delivery O2 Flow Rate FiO2 01/04/17 08:34 97.8 70 18 138/80 95 01/01/17 22:13 Room Air Intake and Output 01/03/17 01/03/17 01/04/17 15:00 23:00 07:00 Intake Total 1650 ml 1500 ml Balance 1650 ml 1500 ml Exam Constitutional: alert, oriented, well developed Respiratory: clear to auscultation, normal air movement Cardiovascular: nl pulses, regular rate and rhythm Gastrointestinal: non-tender, soft Musculoskeletal: nl extremities to inspection Extremities: normal pulses, other (no edema, clubibng or cyanosis ) Neurological: DRAGGER II-XII intact, nl mental status, nl speech, other (mild generalised weakness ) Results Result Diagram: 01/04/17 0448 01/04/17 0440 Results 24 hrs Laboratory Tests Test 01/03/17 17:23 01/03/17 21:11 01/04/17 01:56 01/04/17 04:40 Bedside Glucose 162 199 233 H Sodium Level 139 Potassium Level 4.3 Chloride Level 108 Carbon Dioxide Level 26 Anion Gap 9 Blood Urea Nitrogen 9 Creatinine 0.46 Glucose Level 222 H Calcium Level 8.6 Phosphorus Level 4.0 Magnesium Level 1.6 L Test 01/04/17 04:48 01/04/17 08:13 01/04/17 11:52 White Blood Count 9.7 Red Blood Count 4.69 Hemoglobin 13.0 Hematocrit 36.8 L Mean Corpuscular Volume 78.5 L Mean Corpuscular Hemoglobin 27.7 L Mean Corpuscular Hemoglobin Concent 35.3 Red Cell Distribution Width 12.6 Platelet Count 240 Mean Platelet Volume 10.2 Neutrophils % 41.1 Lymphocytes % 47.9 Monocytes % 6.3 Eosinophils % 3.2 Basophils % 0.7 Nucleated Red Blood Cells % 0.2 H Neutrophils # 4.0 Lymphocytes # 4.7 H Monocytes # 0.6 Eosinophils # 0.3 Basophils # 0.1 Nucleated Red Blood Cells # 0.0 Bedside Glucose 216 200 Medications Medications Current Medications Ondansetron HCl (Zofran Inj) 4 mg Q6H PRN IV NAUSEA AND/OR VOMITING; Start 01/01 at 21:30 Acetaminophen (Tylenol Tab) 650 mg Q6H PRN PO PAIN LEVEL 1-3 OR FEVER Last administered on 01/03/17 21:03; Admin Dose 650 MG; Start 01/01/17 at 21:30 Famotidine (Pepcid Iv) 20 mg Q12 IV Last administered on 01/04/17 08:43; Admin Dose 20 MG; Start 01/02/17 at 09:00 Meclizine HCl (Antivert) 25 mg TID PO Last administered on 01/04/17 12:37; Admin Dose 25 MG; Start 01/01/17 at 22:00 Atenolol (Tenormin) 50 mg DAILY PO Last administered on 01/04/17 08:44; Admin Dose 50 MG; Start 01/02/17 at 09:00 Miscellaneous Information 1 ea NOTE XX ; Start 01/01/17 at 22:00 Glucose (Glutose) 15 gm Q15M PRN PO DECREASED GLUCOSE; Start 01/01/17 at 22:00 Glucose (Glutose) 22.5 gm Q15M PRN PO DECREASED GLUCOSE; Start 01/01/17 at 22:00 Dextrose (D50w Syringe) 25 ml Q15M PRN IV DECREASED GLUCOSE; Start 01/01/17 at 22:00 Dextrose (D50w Syringe) 50 ml Q15M PRN IV DECREASED GLUCOSE; Start 01/01/17 at 22:00 Glucagon (Glucagen) 1 mg Q15M PRN IM DECREASED GLUCOSE; Start 01/01/17 at 22:00 Glucose (Glutose) 15 gm Q15M PRN BUCCAL DECREASED GLUCOSE; Start 01/01/17 at 22: 00 Linagliptin (Tradjenta) 5 mg DAILY PO Last administered on 01/04/17 08:43; Admin Dose 5 MG; Start 01/02/17 at 09:30 Diagnostic Test (Pha) 1 ea 1 ea 02 XX Last administered on 01/04/17 02:12; Admin Dose 1 EA; Start 01/03/17 at 02:00 Potassium Chloride/Sodium Chloride (NS-KCl 20 Meq) 1,000 ml @ 125 mls/hr Q8H IV Last administered on 01/04/17 12:36; Admin Dose 125 MLS/HR; Start 01/02/17 at 10:30 Atorvastatin Calcium (Lipitor) 20 mg HS PO Last administered on 01/03/17 21:04 ; Admin Dose 20 MG; Start 01/03/17 at 21:00 Insulin Glargine 14 unit 14 unit DAILY@08 SC Last administered on 01/04/17 09: 22; Admin Dose 14 UNIT; Start 01/03/17 at 11:00 Magnesium Sulfate (Magnesium Sulfate 2 Gm/50 ml) 50 ml @ 25 mls/hr ONCE ONCE IVPB Last administered on 01/04/17 14:18; Admin Dose 25 MLS/HR; Start at 13:30; Stop 01/04/17 at 15:29 SUNDEEP VINES January 04, 2017 14:47
--- NOTE | 2017-01-04 14:49 | PDOCDIS ---
Discharge Instructions CONDITION Patient Condition: Good HOME CARE INSTRUCTIONS: Special Diet: Diabetic Diet ACTIVITY: Activity Restrictions: Slowly Increase Activity Rest between Activity Do not operate Machinery Avoid Heavy Housework Bathing Restrictions: Shower FOLLOW UP/APPOINTMENTS Appointments Follow up with Home Health PT Follow up with PCP within 1 week SUNDEEP VINES January 04, 2017 14:49
[2017-01-04] MEDS ORDERED: ATOR20TA65 PO (14:53)
[2017-01-04] MEDS ORDERED: NOVO3I SC (14:53)
[2017-01-04] MEDS ORDERED: LINA5TAB PO (14:53)
[2017-01-04] MEDS ORDERED: LANT3I SC (14:53)
[2017-01-04] MEDS ORDERED: METO5TAB2 PO (14:53)
[2017-01-04] MEDS ORDERED: MECL-77 PO (14:53)
--- NOTE | 2017-01-06 19:25 | DS ---
DATE OF ADMISSION: 01/01/2017 DATE OF DISCHARGE: 01/04/2017 PRIMARY CARE PHYSICIAN: Dr. Payton Nowak CHIEF COMPLAINT ON ADMISSION: Nausea, vomiting, dizziness. BRIEF HISTORY OF PRESENT ILLNESS: This is a 56-year-old female with diabetes mellitus type 2, hyper tension, previous known benign positional vertigo who presented to the emergency department with mul tiple episodes of nausea, vomiting, and severe vertigo with gait imbalance. She was treated in [facility] and subsequently sent to the ER for further evaluation. The patient was admitted to [facility] at first on IV fluids for workup. HOSPITAL COURSE: The patient had a CT angiogram of the head and neck, which was negative for any ac [place] findings. She was started on Reglan and meclizine around the clock. Within 48 hours, her sympt oms improved greatly. Her nausea resolved. She started tolerating p.o. Her hemoglobin A1c came ba ck at 11.5. The patient claimed that she did not get diabetic education as an outpatient; however, there is noncompliance also as she was not on a diabetic diet and seems to be just taking the same d ose of metformin. Diabetic education was provided. A glucometer was provided. She was started on insulin regimen including Lantus and NovoLog. She was also started on Tradjenta in the hospital; ho wever, not covered by her insurance, therefore, at discharge, she is mainly on Lantus and NovoLog. By the time of discharge, her vertiginous symptoms resolved completely. She is tolerating p.o. She is able to ambulate. She was having some generalized weakness. Therefore, home health, PT has bee n ordered and a 4 wheeled walker has been provided. Her blood pressure remained stable once she was more comfortable and she has been on atenolol, well tolerated. DISPOSITION: Discharge home with home health. DISCHARGE CONDITION: Stable. DISCHARGE DIET: Diabetic diet. DISCHARGE ACTIVITY: Resume home activity with physical therapy and the 4-wheeled walker as a DME, a t least for a few days. DISCHARGE DIAGNOSES: 1. Acute on chronic severe benign positional vertigo, much improved, back to baseline. 2. Intractable nausea and vomiting in setting of vertigo, resolved. Possibly patient also has moises roparesis. 3. Diabetes mellitus, uncontrolled. 4. Hypokalemia, resolved. 5. Hypomagnesemia, resolved. 6. Hyperlipidemia, on Lipitor now. FOLLOWUP: The patient needs to follow up with her primary care physician within 1 week for further adjustment of her diabetic regimen. DISCHARGE MEDICATIONS: 1. Atorvastatin 20 mg p.o. at bedtime. 2. NovoLog 4 units subcutaneously q.a.c. 3. Lantus 14 units subcutaneously daily. 4. Meclizine 25 mg p.o. t.i.d. p.r.n. dizziness. 5. Reglan 5 mg p.o. q.i.d. p.r.n. nausea, vomiting. 6. Atenolol 50 mg p.o. daily. 7. Tradjenta 5 mg p.o. daily, but unfortunately this has not been covered by her outpatient insuran ce. Dictated By: SUNDEEP AGUILAR/IRAJ Conf#: [id number] DID#: [id number]
== END 2017-01-04 19:45 | disposition home health service (06) | DRG 149 ==
LOC: E/R 16:33 → TEL 21:20 → MS1 01-04 00:50
PROVIDERS: ADMIT Internal Medicine; ATTEND Internal Medicine
DX: H81.10 Benign paroxysmal vertigo, unspecified ear (principal); E11.65 Type 2 diabetes mellitus with hyperglycemia; I10 Essential (primary) hypertension; R11.2 Nausea with vomiting, unspecified; E87.6 Hypokalemia; E83.42 Hypomagnesemia; E78.5 Hyperlipidemia, unspecified
CPT/HCPCS: 36415; 70450; 70496; 70498; 80048; 80053; 80061; 82150; 82962; 83036; 83690; 83735; 84100; 84439; 84443; 84484; 85025; 85610; 85730; 93005; 93306; 96374; 96375; 96376; 97162; J1815; J2405; J2765; J3360; J3475; J3480; J7030; J7040; Q9967